=== PATIENT | female | born 1995 | race African-American/Black ===

== ENCOUNTER 2016-11-12 15:30 | Emergency (ER) | payer OTHER ==
[~2016-11-12 15:30] MED LIST: METR500I3 PO
[2016-11-12 15:32] VITALS: BP 109/56; PULSE 83; RESP 15; TEMP 97.6; O2SAT 98
--- NOTE | 2016-11-12 17:55 | PD ---
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 Patient states his symptoms started 3 days ago, she denies any foul odor, itching, burning, dysuria. She denies any fever, chills, nausea, vomiting, chest pain, shortness of breath. Patient has had recent unprotected sex however she is in monogamous relationship. Her last menstrual cycle was on November 01, 2016. Patient denies any significant past medical history or drug allergies. PFS Past Medical History Medical History: Denies Significant Hx Diminished Hearing: No ?: Not LMP: 11/01/16 Past Surgical History Surgical History: No Previous Surgery Social History Alcohol Use: Yes Tobacco Use: No Substance Use: No Allergies-Medications (Allergen,Severity, Reaction): Coded Allergies: No Known Allergies (Unverified , 11/12/16) Reported Meds & Prescriptions Reported Meds & Active Scripts Active Keflex (Cephalexin) 500 Mg Cap 500 Mg PO Q12H 7 Days Review of Systems Except as stated in HPI: all other systems reviewed are Neg Genitourinary: Positive: Pelvic Pain, Discharge, No: Dysuria, Vaginal Bleeding Physical Exam Narrative GENERAL: Well-developed, well-nourished, alert female. Resting comfortably in no acute distress. SKIN: Warm and dry. HEAD: Atraumatic. Normocephalic. EYES: Pupils equal and round. No scleral icterus. No injection or drainage. ENT: No nasal bleeding or discharge. Mucous membranes pink and moist. NECK: Trachea midline. No JVD. CARDIOVASCULAR: Regular rate and rhythm. No murmur appreciated. RESPIRATORY: No accessory muscle use. Clear to auscultation. Breath sounds equal bilaterally. GASTROINTESTINAL: Abdomen soft, non-tender, nondistended. Hepatic and splenic margins not palpable. Active bowel sounds, no rebound, no guarding. No CVAT bilaterally. MUSCULOSKELETAL: No obvious deformities. No clubbing. No cyanosis. No edema. NEUROLOGICAL: Awake and alert. No obvious cranial nerve deficits. Motor grossly within normal limits. Normal speech. PSYCHIATRIC: Appropriate mood and affect; insight and judgment normal. Data Data Last Documented VS Vital Signs Date Time Temp Pulse Resp B/P Pulse Ox O2 Delivery O2 Flow Rate FiO2 11/12/16 18:33 67 16 119/69 100 Room Air 11/12/16 15:32 97.6 Orders Complete Blood Count With Diff (11/12/16 17:32) Comprehensive Metabolic Panel (11/12/16 17:32) Gc And Chlamydia Pcr (11/12/16 17:32) Wet Prep Profile (11/12/16 17:32) Urinalysis - C+S If Indicated (11/12/16 17:32) Ed Urine Pregnancytest Poc (11/12/16 17:32) Urine Culture (11/12/16 17:53) Azithromycin (Zithromax) (11/12/16 18:45) Metronidazole (Flagyl) (11/12/16 18:45) Ceftriaxone Inj (Rocephin Inj) (11/12/16 18:45) Lidocaine 1% Inj (50 Ml) (Xylocaine 1% I (11/12/16 18:45) Labs Laboratory Tests Test 11/12/16 11/12/16 17:53 19:25 White Blood Count 5.5 TH/MM3 Red Blood Count 4.70 MIL/MM3 Hemoglobin 10.0 GM/DL Hematocrit 32.0 % Mean Corpuscular Volume 68.1 FL Mean Corpuscular Hemoglobin 21.3 PG Mean Corpuscular Hemoglobin 31.2 % Concent Red Cell Distribution Width 16.1 % Platelet Count 205 TH/MM3 Mean Platelet Volume 9.0 FL Neutrophils (%) (Auto) 53.2 % Lymphocytes (%) (Auto) 37.5 % Monocytes (%) (Auto) 8.6 % Eosinophils (%) (Auto) 0.3 % Basophils (%) (Auto) 0.4 % Neutrophils # (Auto) 3.0 TH/MM3 Lymphocytes # (Auto) 2.1 TH/MM3 Monocytes # (Auto) 0.5 TH/MM3 Eosinophils # (Auto) 0.0 TH/MM3 Basophils # (Auto) 0.0 TH/MM3 CBC Comment AUTO DIFF Differential Comment AUTO DIFF CONFIRMED Platelet Estimate NORMAL Platelet Morphology Comment NORMAL Basophilic Stippling FAINT Target Cells 1+ Tear Drop Cells 1+ Ovalocytes 1+ Keratocytes OCC Urine Color YELLOW Urine Turbidity HAZY Urine pH 6.5 Urine Specific [place] 1.028 Urine Protein 30 mg/dL Urine Glucose (UA) NEG mg/dL Urine Ketones 10 mg/dL Urine Occult Blood NEG Urine Nitrite NEG Urine Bilirubin NEG Urine Urobilinogen 2.0 MG/DL Urine Leukocyte Esterase NEG Urine RBC 2 /hpf Urine WBC 3 /hpf Urine Squamous Epithelial 16 /hpf Cells Urine Bacteria MOD /hpf Urine Mucus FEW /lpf Microscopic Urinalysis Comment CULTURE INDICATED Sodium Level 140 MEQ/L Potassium Level 3.8 MEQ/L Chloride Level 104 MEQ/L Carbon Dioxide Level 25.2 MEQ/L Anion Gap 11 MEQ/L Blood Urea Nitrogen 14 MG/DL Creatinine 0.65 MG/DL Estimat Glomerular Filtration 138 ML/MIN Rate Random Glucose 65 MG/DL Calcium Level 8.8 MG/DL Total Bilirubin 1.7 MG/DL Aspartate Amino Transf 10 U/L (AST/SGOT) Alanine Aminotransferase 13 U/L (ALT/SGPT) Alkaline Phosphatase 50 U/L Total Protein 7.5 GM/DL Albumin 4.0 GM/DL Clue Cells (Wet Prep) NONE SEEN Vaginal Trichomonas (Wet Prep) NONE SEEN Vaginal Yeast (Wet Prep) NONE SEEN MDM Medical Decision Making Medical Screen Exam Complete: Yes Emergency Medical Condition: Yes Interpretation(s) Vital Signs Date Time Temp Pulse Resp B/P Pulse Ox O2 Delivery O2 Flow Rate FiO2 11/12/16 15:32 97.6 83 15 109/56 98 Differential Diagnosis Bambi versus BV versus STI versus UTI versus other Narrative Course Patient is a 21-year-old female presenting to emergency for evaluation of lower pelvic pain, back pain, vaginal discharge for the last 3 days. Workup initiated in triage, care of patient will be transferred to provider when a medical bed is available. Scripts Cephalexin (Keflex)500 Mg [id number] Mg PO Q12H 7 Days Ref 0 Prov:Shannan Steinberg 11/12/16 Jodie Whipple Nov 12, 2016 17:55
[2016-11-12 18:08] LABS: BASOPHIL % 0.4 % (0.0-2.0); EOSINOPHIL % 0.3 % (0.0-4.0); LYMPH % 37.5 % (9.0-44.0); LYMPHOCYTE # 2.1 TH/MM3 (1.0-4.8); MEAN CELL VOLUME 68.1 FL (80.0-100.0); MEAN CORPUSCULAR HEMOGLOBIN 21.3 PG (27.0-34.0); MEAN CORPUSCULAR HGB CONC 31.2 % (32.0-36.0); MONO % 8.6 % (0.0-8.0); NEUT % 53.2 % (16.0-70.0); PLATELET COUNT 205 TH/MM3 (150-450); RED CELL DISTRIBUTION WIDTH 16.1 % (11.6-17.2); WHITE BLOOD COUNT 5.5 TH/MM3 (4.0-11.0)
[2016-11-12 18:13] LABS: HEMO FLAGS AUTO DIFF
[2016-11-12 18:21] LABS: BACTERIA, URINE MOD /hpf; BLOOD, URINE NEG (NEG); COMMENT (UR) CULTURE INDICATED; CULTURE IF INDICATED CULTURE INDICATED; GLUCOSE,URINE NEG (NEG); KETONE, URINE 10 mg/dL (NEG); MUCUS URINE FEW /lpf (OCC); NITRITE,URINE NEG (NEG); PH, URINE 6.5 (5.0-8.5); SQUAMOUS EPITHELIAL CELL URINE 16 /hpf (0-5); URINE COLOR YELLOW (YELLW/STRAW)
[2016-11-12 18:33] VITALS: BP 119/69; PULSE 67; RESP 16; O2SAT 100
[2016-11-12 18:41] LABS: TEARDROP RBCS 1+ (NORMAL)
[2016-11-12 18:42] LABS: TARGET CELLS 1+ (NORMAL)
[2016-11-12 18:43] LABS: KERATOCYTES OCC (NORMAL)
[2016-11-12 18:44] LABS: ALT (GPT) 13 U/L (10-53); ANION GAP 11 MEQ/L (5-15); AST (GOT) 10 U/L (15-37); BICARBONATE 25.2 MEQ/L (21.0-32.0); BLOOD UREA NITROGEN 14 MG/DL (7-18); CHLORIDE 104 MEQ/L (98-107); GLOMERULAR FILTRATION RATE 138 ML/MIN (>89); POTASSIUM 3.8 MEQ/L (3.5-5.1); SODIUM (NA) 140 MEQ/L (136-145)
[2016-11-12 18:45] LABS: OVALOCYTES 1+ (NORMAL)
[2016-11-12] MEDS ORDERED: metroNIDAZOLE 500 MG TAB PO ONE (18:45)
[2016-11-12] MEDS ORDERED: LIDOCAINE HCL 1% 50 ML VIAL XX ONE (18:45)
[2016-11-12] MEDS ORDERED: cefTRIAXone 250 MG VIAL IM ONE (18:45)
[2016-11-12] MEDS ORDERED: AZITHROMYCIN 250 MG TAB PO ONE (18:45)
[2016-11-12 18:46] LABS: ALKALINE PHOSPHATASE 50 U/L (45-117); PLATELET ESTIMATE SMEAR NORMAL (NORMAL); PLATELET MORPHOLOGY NORMAL (NORMAL); SCAN/DIFF AUTO DIFF CONFIRMED; TOTAL BILIRUBIN ADULT 1.7 MG/DL (0.2-1.0)
[2016-11-12] MEDS ORDERED: CEPH-460 PO (19:09)
--- NOTE | 2016-11-12 19:09 | PD ---
Physical Exam Time Seen by Provider: 19:07 Narrative Workup initiated in triage. This is a 21-year-old female with increased malodorous white vaginal discharge. Patient is in a monogamous relationship area does not utilize collar prophylaxis. Sates that she is not . No significant abdominal pain. No nausea or vomiting. No recent illnesses, fever, chills. No urinary symptoms. No other symptoms to report. Data Data Last Documented VS Vital Signs Date Time Temp Pulse Resp B/P Pulse Ox O2 Delivery O2 Flow Rate FiO2 11/12/16 18:33 67 16 119/69 100 Room Air 11/12/16 15:32 97.6 Orders Complete Blood Count With Diff (11/12/16 17:32) Comprehensive Metabolic Panel (11/12/16 17:32) Gc And Chlamydia Pcr (11/12/16 17:32) Wet Prep Profile (11/12/16 17:32) Urinalysis - C+S If Indicated (11/12/16 17:32) Ed Urine Pregnancytest Poc (11/12/16 17:32) Urine Culture (11/12/16 17:53) Azithromycin (Zithromax) (11/12/16 18:45) Metronidazole (Flagyl) (11/12/16 18:45) Ceftriaxone Inj (Rocephin Inj) (11/12/16 18:45) Lidocaine 1% Inj (50 Ml) (Xylocaine 1% I (11/12/16 18:45) Labs Laboratory Tests Test 11/12/16 11/12/16 17:53 19:25 White Blood Count 5.5 TH/MM3 Red Blood Count 4.70 MIL/MM3 Hemoglobin 10.0 GM/DL Hematocrit 32.0 % Mean Corpuscular Volume 68.1 FL Mean Corpuscular Hemoglobin 21.3 PG Mean Corpuscular Hemoglobin 31.2 % Concent Red Cell Distribution Width 16.1 % Platelet Count 205 TH/MM3 Mean Platelet Volume 9.0 FL Neutrophils (%) (Auto) 53.2 % Lymphocytes (%) (Auto) 37.5 % Monocytes (%) (Auto) 8.6 % Eosinophils (%) (Auto) 0.3 % Basophils (%) (Auto) 0.4 % Neutrophils # (Auto) 3.0 TH/MM3 Lymphocytes # (Auto) 2.1 TH/MM3 Monocytes # (Auto) 0.5 TH/MM3 Eosinophils # (Auto) 0.0 TH/MM3 Basophils # (Auto) 0.0 TH/MM3 CBC Comment AUTO DIFF Differential Comment AUTO DIFF CONFIRMED Platelet Estimate NORMAL Platelet Morphology Comment NORMAL Basophilic Stippling FAINT Target Cells 1+ Tear Drop Cells 1+ Ovalocytes 1+ Keratocytes OCC Urine Color YELLOW Urine Turbidity HAZY Urine pH 6.5 Urine Specific [place] 1.028 Urine Protein 30 mg/dL Urine Glucose (UA) NEG mg/dL Urine Ketones 10 mg/dL Urine Occult Blood NEG Urine Nitrite NEG Urine Bilirubin NEG Urine Urobilinogen 2.0 MG/DL Urine Leukocyte Esterase NEG Urine RBC 2 /hpf Urine WBC 3 /hpf Urine Squamous Epithelial 16 /hpf Cells Urine Bacteria MOD /hpf Urine Mucus FEW /lpf Microscopic Urinalysis Comment CULTURE INDICATED Sodium Level 140 MEQ/L Potassium Level 3.8 MEQ/L Chloride Level 104 MEQ/L Carbon Dioxide Level 25.2 MEQ/L Anion Gap 11 MEQ/L Blood Urea Nitrogen 14 MG/DL Creatinine 0.65 MG/DL Estimat Glomerular Filtration 138 ML/MIN Rate Random Glucose 65 MG/DL Calcium Level 8.8 MG/DL Total Bilirubin 1.7 MG/DL Aspartate Amino Transf 10 U/L (AST/SGOT) Alanine Aminotransferase 13 U/L (ALT/SGPT) Alkaline Phosphatase 50 U/L Total Protein 7.5 GM/DL Albumin 4.0 GM/DL Clue Cells (Wet Prep) NONE SEEN Vaginal Trichomonas (Wet Prep) NONE SEEN Vaginal Yeast (Wet Prep) NONE SEEN MDM Medical Record Reviewed: Yes Supervised Visit with KARLOS: No Differential Diagnosis UTI versus STD versus BV versus cervicitis Narrative Course GENERAL: Well-nourished, well-developed female patient in no acute distress SKIN: Warm and dry. HEAD: Normocephalic. EYES: No scleral icterus. No injection or drainage. NECK: Supple, trachea midline. No JVD or lymphadenopathy. CARDIOVASCULAR: Regular rate and rhythm without murmurs, gallops, or rubs. RESPIRATORY: Breath sounds equal bilaterally. No accessory muscle use. Abdomen: Abdomen soft, non-tender, nondistended. Positive bowel sounds. No hepato-splenomegaly, or palpable masses. No guarding. GENITOURINARY: Normal external genitalia without lesions or erythema. Vaginal vault without blood area there is a thick white milky drainage.. Cervical os was closed without drainage. No cervical motion tenderness. Uterus nontender and nonenlarged. Bilateral adnexa nontender without masses. 21-year-old female presents as a department for evaluation. CBC is hemoglobin of 10, appears to be microcytic anemia. CMP is without acute concern. Urinalysis is hazy with 30 proteinuria, 10 ketones, moderate bacteria, few mucus , culture is indicated. Wet prep is negative. GC PCR is pending. Patient was treated empirically in the emergency department with Rocephin and azithromycin. She'll be discharged home on Keflex for UTI. She is counseling care. She agrees to return immediately with any acute worsening of symptoms.. Diagnosis Primary Impression: Vaginal discharge Additional Impression: UTI (urinary tract infection) Qualified Code: N39.0 - Urinary tract infection without hematuria, site unspecified Referrals: Primary Care Physician Patient Instructions: General Instructions, Vaginal Discharge (ED) Additional Instruction: Utilize condom prophylaxis Follow up with your cork cutter Return to ED with acute worsening of symptoms Med/Other Pt SpecificInfo: Prescription(s) given Scripts Cephalexin (Keflex)500 Mg [id number] Mg PO Q12H 7 Days Ref 0 Prov:Shannan Steinberg 11/12/16 Disposition: 01 DISCHARGE HOME Condition: Stable Shannan Steinberg Nov 12, 2016 19:09
[2016-11-12 22:41] LABS: CHLAMYDIA PCR NOT DETECTED (NOT DETECT); NEISSERIA PCR NOT DETECTED (NOT DETECT)
== END 2016-11-12 19:38 | disposition home or self-care (01) ==
LOC: NETRI 15:30 → NEPE 19:38
DX: N89.8 Other specified noninflammatory disorders of vagina (principal); N39.0 Urinary tract infection, site not specified; B96.89 Other specified bacterial agents as the cause of diseases classified elsewhere
CPT/HCPCS: 80053; 81001; 84703; 85025; 87086; 87210; 87491; 87591; 96372; 99284; J0696

== ENCOUNTER 2016-12-17 18:40 | Emergency (ER) | payer OTHER ==
[~2016-12-17] VITALS: Ht 162.6 cm; Wt 60.0 kg
[~2016-12-17 18:40] MED LIST changes: +CEPH-460 PO; -METR500I3 PO
[2016-12-17 18:43] VITALS: BP 116/76; PULSE 104; TEMP 98.9; O2SAT 99
[2016-12-18] MEDS ORDERED: SODIUM CHLOR 0.9% 1000 ML INJ 1,000 ML IV ONE (00:45)
[2016-12-18 00:52] VITALS: O2SAT 98
--- NOTE | 2016-12-18 01:11 | PD ---
HPI Chief Complaint: Complaint Time Seen by Provider: 00:31 Travel History International Travel<30 days: No Contact w/Intl Traveler<30days: No Traveled to known affect area: No History of Present Illness HPI The patient is a 21 year old female who presents to the [facility] emergency department with a history of vaginal discharge that she reports is white and creamy with associated odor that began today. The patient reports that she had similar symptoms and was evaluated in the emergency department recently. She was treated for a urinary tract infection with Keflex, however the symptoms never resolved. She reports that she had sex for the first time in the last few weeks last week and then she developed a vaginal odor. She reports that she is using condoms. She denies any concerns about sexual transmitted infections. Review of systems, the patient denies any recent fevers, cough, congestion, neck pain, chest pain, shortness of breath, abdominal pain, vomiting, diarrhea, urinary symptoms, or neurologic symptoms. LMP: November 23, 2016 [facility] Past Medical History Narrative Medical The patient's past medical history is reportedly none. Medical History: Denies Significant Hx Diminished Hearing: No Tetanus Vaccination: Unknown Influenza Vaccination: No ?: Not LMP: 11/30/16 Past Surgical History Narrative Surgical The patient's past surgical history is reportedly none. Surgical History: No Previous Surgery Social History Alcohol Use: Yes (occasional) Tobacco Use: No Substance Use: No Allergies-Medications (Allergen,Severity, Reaction): Coded Allergies: No Known Allergies (Unverified , 12/18/16) Reported Meds & Prescriptions Reported Meds & Active Scripts Active Flagyl (Metronidazole) 500 Mg Tab 500 Mg PO BID Keflex (Cephalexin) 500 Mg Cap 500 Mg PO Q12H 7 Days Review of Systems Except as stated in HPI: all other systems reviewed are Neg General / Constitutional: No: Fever Eyes: No: Visual changes HENT: No: Headaches Cardiovascular: No: Chest Pain or Discomfort Respiratory: No: Shortness of Breath Gastrointestinal: No: Abdominal Pain Genitourinary: Positive: Discharge, No: Urgency, Frequency, Dysuria, Flank Pain, Vaginal Bleeding Musculoskeletal: No: Pain Skin: No Rash Neurologic: No: Weakness Psychiatric: No: Depression Endocrine: No: Polydipsia Hematologic/Lymphatic: No: Easy Bruising Physical Exam Narrative General: The patient is well-developed well-nourished female in no acute distress. Head and Neck exam: Head is normocephalic atraumatic. Eyes: EOMI, pupils are equal round and reactive to light. Nose: Midline septum with pink mucous membranes Mouth: Dentition unremarkable. Moist mucus membranes. Posterior oropharynx is not erythematous. No tonsillar hypertrophy. Uvula midline. Airway patent. Neck: No palpable lymphadenopathy. No nuchal rigidity. No thyromegaly. Cardiovascular: Regular rate and rhythm without murmurs, gallops, or rubs. Lungs: Clear to auscultation bilaterally. No wheezes, rhonchi, or rales. Abdomen: Soft, without tenderness to palpation in all 4 quadrants of the abdomen. No guarding, rebound, or rigidity. Normal bowel sounds are audible. Extremities: No clubbing, cyanosis, or edema. 2+ pulses in all 4 extremities. Back: No costovertebral angle tenderness to palpation. Neurologic Exam: Grossly nonfocal. Skin Exam: No rash noted. Intact skin that is warm and dry. Gynecologic exam: The patient was placed in the dorsal lithotomy position. Her external genitalia were examined. She had no evidence of rash or lesions. The speculum was placed into her vagina and the cervix was identified. She had a white discharge with a positive whiff test. She has cervical friability. On Bimanual exam: she has no cervical motion tenderness. No adnexal tenderness or prominence noted on palpation. No uterine tenderness or enlargement noted on palpation. Data Data Last Documented VS Vital Signs Date Time Temp Pulse Resp B/P Pulse Ox O2 Delivery O2 Flow Rate FiO2 12/18/16 00:52 98 Room Air 12/17/16 18:43 98.9 104 116/76 Orders Complete Blood Count With Diff (12/18/16 00:32) Basic Metabolic Panel (Bmp) (12/18/16 00:32) Wet Prep Profile (12/18/16 00:32) Gc And Chlamydia Pcr (12/18/16 00:32) Iv Access Insert/Monitor (12/18/16 00:32) Ecg Monitoring (12/18/16 00:32) Oximetry (12/18/16 00:32) Ed Urine Pregnancytest Poc (12/18/16 00:32) Sodium Chlor 0.9% 1000 Ml Inj (Ns 1000 M (12/18/16 00:45) Metronidazole (Flagyl) (12/18/16 03:45) Labs Laboratory Tests Test 12/18/16 12/18/16 01:10 02:50 White Blood Count 7.2 TH/MM3 Red Blood Count 5.10 MIL/MM3 Hemoglobin 10.8 GM/DL Hematocrit 34.4 % Mean Corpuscular Volume 67.5 FL Mean Corpuscular Hemoglobin 21.2 PG Mean Corpuscular Hemoglobin 31.5 % Concent Red Cell Distribution Width 15.7 % Platelet Count 228 TH/MM3 Mean Platelet Volume 9.9 FL Neutrophils (%) (Auto) 53.2 % Lymphocytes (%) (Auto) 38.2 % Monocytes (%) (Auto) 7.7 % Eosinophils (%) (Auto) 0.3 % Basophils (%) (Auto) 0.6 % Neutrophils # (Auto) 3.8 TH/MM3 Lymphocytes # (Auto) 2.7 TH/MM3 Monocytes # (Auto) 0.6 TH/MM3 Eosinophils # (Auto) 0.0 TH/MM3 Basophils # (Auto) 0.0 TH/MM3 CBC Comment AUTO DIFF Differential Comment AUTO DIFF CONFIRMED Target Cells 2+ Tear Drop Cells 1+ Ovalocytes 2+ Keratocytes 1+ Sodium Level 138 MEQ/L Potassium Level 4.9 MEQ/L Chloride Level 105 MEQ/L Carbon Dioxide Level 27.5 MEQ/L Anion Gap 6 MEQ/L Blood Urea Nitrogen 16 MG/DL Creatinine 0.84 MG/DL Estimat Glomerular Filtration 103 ML/MIN Rate Random Glucose 93 MG/DL Calcium Level 8.8 MG/DL Clue Cells (Wet Prep) NONE SEEN Vaginal Trichomonas (Wet Prep) NONE SEEN Vaginal Yeast (Wet Prep) NONE SEEN Chlamydia trachomatis DNA NOT DETECTED (PCR) Neisseria gonorrhoeae DNA NOT DETECTED (PCR) [facility] Medical Decision Making Medical Screen Exam Complete: Yes Emergency Medical Condition: Yes Medical Record Reviewed: Yes Differential Diagnosis Bacterial vaginosis, versus trichomoniasis, versus gonorrhea, versus chlamydia Narrative Course During the course of the patients emergency department visit, the patients history, examination, and differential diagnosis were reviewed with the patient. The patient had IV access obtained and blood work sent for analysis. The patient was placed on a manager cardiac with oximetry and blood pressure monitoring. The patient's electronic medical record was reviewed. The patient was diagnosed with a urinary tract infection and started on Keflex. The urinalysis grew out Gardnerella. A bedside test was negative. The patient was initially provided normal saline 1 L IV fluid bolus, Flagyl 500 by mouth. The patients laboratory studies were reviewed and remarkable for white count is 7.2, hemoglobin 10.8 which is stable compared to previously, platelets 228 with a normal differential, CMP is unremarkable, wet prep is negative. Given the patient's positive urinary culture for Gardnerella the patient will be treated for bacterial vaginosis. The patient will be sent home with a prescription for Flagyl. The patient is resting comfortably and feels better, is alert and in no distress. The patients results and examination findings were discussed with the patient. The repeat examination is unremarkable and benign. The history, exam, diagnostic testing, and current condition do not suggest any significant pathology to warrant further testing, continued ED treatment, admission, or surgical evaluation at this point. The vital signs have been stable. The patient does not have uncontrollable pain, intractable vomiting, or other significant symptoms. The patient's condition is stable and appropriate for discharge. The patient will pursue further outpatient evaluation with a primary care physician or other designated or consulting physician as indicated in the discharge instructions. The patient expressed understanding and was agreeable with this plan. Diagnosis Primary Impression: Vaginal discharge Additional Impression: Bacterial vaginosis Referrals: Twist Tester 1 week [facility] Dept. 1 week Patient Instructions: Bacterial Vaginosis (ED), General Instructions Med/Other Pt SpecificInfo: Prescription(s) given Scripts Metronidazole (Flagyl)500 Mg [id number] Mg PO BID #13 TAB Ref 0 Prov:Joyce Basurto MD 12/18/16 Disposition: DISCHARGE HOME Condition: Stable Joyce Basurto MD Dec 18, 2016 01:11
[2016-12-18 01:35] LABS: AUTOMATED NEUTROPHIL # 3.8 TH/MM3 (1.8-7.7); BASOPHIL % 0.6 % (0.0-2.0); EOSINOPHIL % 0.3 % (0.0-4.0); HEMATOCRIT 34.4 % (35.0-46.0); LYMPH % 38.2 % (9.0-44.0); LYMPHOCYTE # 2.7 TH/MM3 (1.0-4.8); MEAN CELL VOLUME 67.5 FL (80.0-100.0); MEAN CORPUSCULAR HEMOGLOBIN 21.2 PG (27.0-34.0); MEAN CORPUSCULAR HGB CONC 31.5 % (32.0-36.0); MONO % 7.7 % (0.0-8.0); NEUT % 53.2 % (16.0-70.0); PLATELET COUNT 228 TH/MM3 (150-450); RED CELL DISTRIBUTION WIDTH 15.7 % (11.6-17.2); WHITE BLOOD COUNT 7.2 TH/MM3 (4.0-11.0)
[2016-12-18 01:42] LABS: HEMO FLAGS AUTO DIFF
[2016-12-18 01:55] LABS: BICARBONATE 27.5 MEQ/L (21.0-32.0); POTASSIUM 4.9 MEQ/L (3.5-5.1)
[2016-12-18 02:26] LABS: OVALOCYTES 2+ (NORMAL); TARGET CELLS 2+ (NORMAL)
[2016-12-18 02:27] LABS: KERATOCYTES 1+ (NORMAL); SCAN/DIFF AUTO DIFF CONFIRMED; TEARDROP RBCS 1+ (NORMAL)
[2016-12-18] MEDS ORDERED: METR-1 PO (03:31)
[2016-12-18] MEDS ORDERED: metroNIDAZOLE 500 MG TAB PO ONE (03:45)
[2016-12-18 05:43] LABS: CHLAMYDIA PCR NOT DETECTED (NOT DETECT); NEISSERIA PCR NOT DETECTED (NOT DETECT)
== END 2016-12-18 03:44 | disposition home or self-care (01) ==
LOC: NEPE 18:40
DX: N76.0 Acute vaginitis (principal)
CPT/HCPCS: 80048; 84703; 85025; 87210; 87491; 87591; 96360; 99283; J7030